=== PATIENT | female | born 1995 | race African-American/Black ===

== ENCOUNTER 2019-02-03 20:43 | Emergency (ER) | payer BC ==
[~2019-02-03] VITALS: Ht 167.6 cm; Wt 65.9 kg
[2019-02-03] MEDS ORDERED: HALOPERIDOL 5 MG INJ IM STA (20:52)
[2019-02-03] MEDS ORDERED: LORAZEPAM 2 MG INJ IM ONE (21:00)
[2019-02-03] MEDS ORDERED: DIPHENHYDRAMINE 50 MG INJ IM ONE (21:00)
[2019-02-03 21:13] VITALS: Ht 167.6 cm; Wt 65.9 kg
[2019-02-04 11:20] VITALS: BP 123/76; PULSE 78; RESP 16
== END 2019-02-04 14:00 | disposition home or self-care (01) ==
LOC: E/R 20:43
DX: T43.621A Poisoning by amphetamines, accidental (unintentional), initial encounter (principal); R40.2142 Coma scale, eyes open, spontaneous, at arrival to emergency department; R40.2362 Coma scale, best motor response, obeys commands, at arrival to emergency department; R40.2242 Coma scale, best verbal response, confused conversation, at arrival to emergency department; F15.10 Other stimulant abuse, uncomplicated; X58.XXXA Exposure to other specified factors, initial encounter; Y92.9 Unspecified place or not applicable
CPT/HCPCS: 73130; 80053; 80307; 85025; 96372; 99285; J1200; J1630; J2060